=== PATIENT | female | born 1985 | race Caucasian/White ===

== ENCOUNTER → 2019-10-27 | Outpatient (CLI) | payer OTHER ==
--- NOTE | 2019-10-27 08:04 | Diagnostic Imaging Report ---
EXAM: RIGHT UPPER QUADRANT ULTRASOUND DATE: October 27, 2019. COMPARISON: Nuclear medicine HIDA scan March 28, 2013. INDICATION: 34-year-old female, epigastric abdominal pain. PROCEDURE: Two-dimensional grayscale and color doppler ultrasound examination of the right upper quadrant is performed. FINDINGS: Liver: The liver is of normal size and echotexture without solid or cystic masses. The main portal vein is patent with normal directional flow and velocity. Bile ducts and gallbladder: There is no pericholecystic fluid, gallbladder wall thickening or gallstones. The gallbladder wall measures 0.2 cm. There is no intrahepatic or extrahepatic biliary ductal dilation. The common bile duct measures 0.3 cm. Right kidney: Unremarkable right kidney. No hydronephrosis. The right kidney measures 10.3 cm x 5.2 cm x 4.8 cm. Pancreas: Normal visualized pancreas. IMPRESSION: 1. Unremarkable right upper quadrant abdominal ultrasound. Dictated by: Dictated on workstation # [id number]
== END ==
LOC: RAD 06:45
PROVIDERS: ATTEND Surgery
DX: R10.816 Epigastric abdominal tenderness (principal)
CPT/HCPCS: 76705

== ENCOUNTER → 2019-11-27 | Outpatient (CLI) | payer OTHER ==
[~2019-11-27] MED LIST: CATHETER FLUSH 10 ML SYR IV PRN
--- NOTE | 2019-11-27 12:58 | Diagnostic Imaging Report ---
INDICATION: Abdominal pain. EXAMINATION: Hepatobiliary scan and gallbladder ejection. TECHNIQUE: 5.42 mCi of technetium 99m Choletec was given for the scan. 8 ounces of Ensure was given orally at 1 hour. FINDINGS: There is homogeneous uptake of isotope throughout the liver. The cystic duct and common duct are both patent. The gallbladder ejection fraction was measured at 39%. IMPRESSION: The cystic duct and common duct are patent. The gallbladder ejection fraction was 39%. Dictated by: Dictated on workstation # [id number]
== END ==
LOC: CARD 09:30
PROVIDERS: ATTEND Surgery
DX: R10.816 Epigastric abdominal tenderness (principal)
CPT/HCPCS: 78227

== ENCOUNTER 2019-12-11 06:34 | Outpatient (RCR) | payer OTHER ==
[~2019-12-11] VITALS: Ht 154.9 cm; Wt 60.0 kg
[~2019-12-11 06:34] MED LIST changes: -CATHETER FLUSH 10 ML SYR IV PRN; +OMEP40CA27 PO
== END 2019-12-11 16:08 | disposition home or self-care (01) ==
LOC: PREOP 06:34
PROVIDERS: ATTEND Surgery
DX: Z01.818 Encounter for other preprocedural examination (principal); Z11.59 Encounter for screening for other viral diseases
CPT/HCPCS: 87635